=== PATIENT | female | born 1970 | race American Indian/Alaskan Native ===

== ENCOUNTER 2018-04-01 11:49 | Emergency (ER) | payer OTHER ==
[2018-04-01 12:13] VITALS: RESP 20; TEMP 98.5
[2018-04-01] MEDS ORDERED: Oxycodone/Acetaminophen 5/325 mg Tab PO STA (12:45)
[2018-04-01 13:02] LABS: HCG,QUALITATIVE URINE NEGATIVE (NEGATIVE)
[2018-04-01 13:03] LABS: SQUAMOUS EPITHIAL 1 /hpf (0-5); URINE BILIRUBIN NEGATIVE (NEGATIVE); URINE CLARITY Clear (Clear); URINE COLOR Yellow (YELLOW); URINE GLUCOSE (UA) NORMAL (Normal); URINE LEUKOCYTE ESTERASE NEG Leu/uL (Negative); URINE PROTEIN NEGATIVE (NEGATIVE); URINE UROBILINOGEN NORMAL mg/dL (0.2-1.0)
[2018-04-01] MEDS ORDERED: Oxycodone/Acetaminophen 5/325 mg Tab ONE (13:03)
--- NOTE | 2018-04-01 13:04 | C.PDOC ---
History Of Present Illness 47 y/o female, with PMHx of HTN, presents to the ED complaining of left knee pain that has been ongoing for a month but worsening over the last week. Pt was at work, felt sudden pain in her knee on 02/27 and was evaluated by the ER with negative for DVT but showed a complex thompson's cyst. PT has an appointment with magalie Mendez on Tuesday. The patient also reports frequent urination. She has a h/o of this in the past, was evaluated by Dr Chin, and by diagnosed with incomplete bladder emptying. PT also notes she has a h/o HTN but was taken off her BP medication a few months ago. She denies any trauma, change in sensation, redness, fever, dysuria, hematuria, headache, chest pain, sob, or visual changes. Time Seen by Provider: 04/01/18 12:19 Chief Complaint (Nursing): Female Genitourinary History Per: Patient History/Exam Limitations: no limitations Onset/Duration Of Symptoms: Days Current Symptoms Are (Timing): Still Present Recent travel outside of the [place]: No Past Medical History Reviewed: Historical Data, Nursing Documentation, Vital Signs Vital Signs: Last Vital Signs Temp 98.5 F 04/01/18 12:09 Pulse 88 04/01/18 13:46 Resp 20 04/01/18 13:46 BP 164/91 H 04/01/18 13:46 Pulse Ox 100 04/04/18 14:42 - Medical History PMH: HTN, Kidney Stones Surgical History: Family History: States: Unknown Family Hx - Social History Hx Tobacco Use: Yes Hx Alcohol Use: No Hx Substance Use: No - Immunization History Hx Tetanus Toxoid Vaccination: (unk) Hx Influenza Vaccination: No Hx Pneumococcal Vaccination: Yes Review Of Systems Except As Marked, All Systems Reviewed And Found Negative. Constitutional: Negative for: Fever Genitourinary: Positive for: Frequency. Negative for: Dysuria, Vaginal Bleeding Musculoskeletal: Positive for: Leg Pain (left knee pain) Neurological: Negative for: Numbness Physical Exam - Physical Exam Appears: Well, Non-toxic, Other (uncomfortable) Skin: Warm, Dry Head: Atraumatic, Normacephalic Eye(s): bilateral: Normal Inspection, EOMI Nose: Normal Oral Mucosa: Moist Neck: Normal ROM, Supple Chest: Symmetrical Cardiovascular: Rhythm Regular Respiratory: Normal Breath Sounds, No Accessory Muscle Use, Other (speaking in full sentences) Extremity: No Normal ROM (decresaed secondary to pain), Tenderness (tenderness to the left knee diffusely, primarily to the posterior knee), No Pedal Edema, Capillary Refill (<2 sec), No Deformity, No Swelling Pulses: Left Dorsalis Pedis: Normal, Right Dorsalis Pedis: Normal Neurological/Psych: Oriented x3, Normal Speech, Other (no focal deficits) ED Course And Treatment O2 Sat by Pulse Oximetry: 100 (RA) Pulse Ox Interpretation: Normal Progress Note: Ordered UA. Medications given in ED: percocet 2 tab PO and Toradol (30 mg IM). UA shows no UTI, no glucose in urine. pt instructed to follow up with urology in 1-2 days. BP improved. pt requests to restart her BP medication as written. DIsucssed risks on untreated htn and instructed to follow up with PMD for re-check. PT continues to be asymptomatic - denies chest pain, headache, sob or dizziness. Knee pain: evaluated previous work up, neg DVT. No signs of infection. Cap refill <2 sec. Pt notes pain improved. Instructed to follow up with ortho as scheduled or return to er if symptoms persist or worsen. CAse discussed with Dr Ingram , agreed upon plan and treatment. Disposition - Disposition Referrals: Kell John MD [Staff Provider] - Binta Doherty MD [Staff Provider] - Luis Miguel Chin MD [Staff Provider] - Disposition: HOME/ ROUTINE Disposition Time: 13:50 Condition: STABLE Additional Instructions: Follow up with your primary medical doctor or clinic in 2-5 days for further evaluation. Take medications as prescribed. Return to the emergency department at any time if symptoms persist or worsen. Prescriptions: Atenolol [Tenormin] 25 mg PO DAILY #14 tab traMADol [Ultram] 50 mg PO Q8 #15 tab Instructions: High Blood Pressure (DC), Thompson's Cyst (DC) Forms: [facility] ([place]ak[place]) - Clinical Impression Clinical Impression: Thompson cyst, HTN (hypertension) - PA / [employer] / Resident Statement MD/DO has reviewed & agrees with the documentation as recorded. - Scribe Statement The provider has reviewed the documentation as recorded by the Scribe (Yamilka Chao) All medical record entries made by the Scribe were at my direction and personally dictated by me. I have reviewed the chart and agree that the record accurately reflects my personal performance of the history, physical exam, medical decision making, and the department course for this patient. I have also personally directed, reviewed, and agree with the discharge instructions and disposition.
[2018-04-01 13:07] LABS: URINE BLOOD 1+ (NEGATIVE)
[2018-04-01 13:47] VITALS: BP 164/91; PULSE 88
[2018-04-01 13:52] VITALS: O2SAT 100
== END 2018-04-01 14:13 | disposition home or self-care (01) ==
LOC: C.ER 11:49
DX: M71.22 Synovial cyst of popliteal space [Baker], left knee (principal); I10 Essential (primary) hypertension; F17.210 Nicotine dependence, cigarettes, uncomplicated
CPT/HCPCS: 81001; 84703; 96372; 99285; J1885

== ENCOUNTER 2018-05-31 08:06 | Day surgery (SDC) | payer OTHER ==
[2018-05-29 11:47] VITALS: BMI 41.8
[2018-05-31] MEDS ORDERED: ceFAZolin IV 1 gm in Dextrose 0 GM/0 ML BAG IVPB ONE (11:15)
[2018-05-31] MEDS ORDERED: EPINEPHrine 1:1000 Nasal Sol(30mL) ONE (11:15)
[2018-05-31] MEDS ORDERED: Bupivacaine HCl 0.5% PF (30 ml) Inj ONE (11:15)
[2018-05-31] MEDS ORDERED: Propofol 10 mg/ml Inj (20 ML) ONE (11:30)
[2018-05-31] MEDS ORDERED: Midazolam 2 MG/2 ML VIAL ONE (11:30)
[2018-05-31] MEDS ORDERED: Rocuronium 10 mg/ml (5 ml) ONE (11:32)
[2018-05-31] MEDS ORDERED: Clindamycin 600mg/50ml NS 1,200 MG/100 ML BAG IVPB ONE (12:14)
[2018-05-31] MEDS ORDERED: Rocuronium 10 mg/ml (10 ml) ONE (12:59)
[2018-05-31] MEDS ORDERED: Clindamycin 300 MG in Sodium Chloride 0.9% 50 ML IVPB SCH (13:00)
[2018-05-31] MEDS ORDERED: Labetalol 5mg/ml (4ml) ONE (13:45)
[2018-05-31] MEDS ORDERED: Neostigmine Methylsulfate 3mg/3ml Syringe IV ONE (14:45)
[2018-05-31] MEDS ORDERED: Lactated Ringer's 1,000 ML IV ONE (15:10)
[2018-05-31] MEDS: HYDROmorphone 1 mg/ml ISec IVP PRN ×2 (15:10→16:46)
[2018-05-31] MEDS ORDERED: Oxycodone/Acetaminophen 5/325 mg Tab PO PRN ×2 (15:14)
[2018-05-31] MEDS: HYDROmorphone 0.5 mg/0.5 ml ISec IVP PRN ×2 (15:17→15:27)
--- NOTE | 2018-05-31 15:19 | CP.PCM.PCO ---
Physician Communication Note - Physician Communication Note Physician Communication Note: Patient pedal pulses were examined in PACU palpable/intact.
[2018-05-31] MEDS ORDERED: Metoprolol 1 mg/ml Inj IVP ONE ×2 (15:32→16:59)
--- NOTE | 2018-05-31 16:10 | PCM.ANESB7 ---
Adductor Canal Block - Adductor Canal Block Date of Procedure: 05/31/18 Anesthiologist: [email or web address] Procedure Performed: Adductor Canal Block Left - Procedure Adductor Canal Block: The procedure was explained to the patient that it is for the post-operative pain management. Consent was obtained after a thorough discussion with the patient regarding the benefits and possible complications of local anesthetic adductor canal block of the femoral nerve. Standard monitors, as defined by the ASA, were applied to the patient. Time-out was held with the circulating nurse to confirm the appropriate block. After applying supplemental oxygen and administering IV Sedation as needed, the patient was placed in supine position with and the operative leg was flexed slightly at the knee and externally rotated as needed, and was kept anatomically stable. The mid-thigh of the ____left____ lower extremity was exposed. The ultrasound transducer was then applied transversely along the medial aspect, about midway down the thigh and the femoral artery and vein were identified in appropriate relation with the sartorius muscle. At this time, the femoral nerve was visualized lateral to the femoral artery within the canal. After thorough identification, this area area was prepped with Chloroprep solution three times and 1 % Lidocaine was injected subcutaneously for topical anesthesia. At this point, a #22 gauge Stimuplex 4-inch needle was inserted in-plane in a [id number] orientation, and advanced toward the femoral nerve. After negative aspiration, _5____cc of __.5___% bupvicaine was injected and this was followed with ____25__ cc of ___.5____ % bupvicaine . Under ultrasound guidance the local anesthetics were observed spreading around the femoral nerve. The needle was removed intact and sterile dressing was applied. The patient had stable vital signs, was conscious and in no apparent distress. The patient tolerated the femoral nerve block well with stable vital signs and was prepared for subsequent surgery
[2018-05-31] MEDS ORDERED: HYDROmorphone 1 mg/ml ISec IVP PRN (17:00)
[2018-05-31] MEDS ORDERED: DiphenhydrAMINE 50 mg/ml Inj IM STA (17:29)
--- NOTE | 2018-05-31 20:15 | PCM.SURG1 ---
Surgeon's Initial Post Op Note - Surgeon's Notes Surgeon: Binta Mobley MD Oil Heaterman: Neto Britt PA-C Type of Anesthesia: General Endo, Block Regional Pre-Operative Diagnosis: Left knee: #1 Medial Meniscal Tear. 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 #3 Synovitis. #4 Symtomatic Medial Plica Operative Findings: Left knee: #1 Medial Meniscal Tear (2 zones of injury= complex horizontal cleavage tear Posterior Horn to Mid Body, starting at White - White Zone extending to Red-White zone, partially repairable/ Peripheral Red-Red zone tear posterior body). 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 #3 Patella and Medial Tibial Plateau Chondromalacia (grade 2-3 chondromalacia at medial facet inferior aspect, anterior aspect medial tibial plateau, no full thickness defect seen). #4 Lateral Meniscal Tear (complex free edge white - white zone tear , not repairable). #5 Severe inflammed Synovitis throughout entire knee joint in all 3 compartments. #6 Symptomatic medial and lateral plica. #7 Severely Hypertrophic, Inflamed infrapatellar fat pad (causing impingement on extension and PF joint). #8 multiple loose bodies (3 of them measuring greater than 1cm) Post-Operative Diagnosis: Left knee: #1 Medial Meniscal Tear (2 zones of injury= complex horizontal cleavage tear Posterior Horn to Mid Body, starting at White - White Zone extending to Red-White zone, partially repairable/ Peripheral Red-Red zone tear posterior body). 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 #3 Patella and Medial Tibial Plateau Chondromalacia (grade 2-3 chondromalacia at medial facet inferior aspect, anterior aspect medial tibial plateau, no full thickness defect seen). #4 Lateral Meniscal Tear (complex free edge white - white zone tear , not repairable). #5 Severe inflammed Synovitis throughout entire knee joint in all 3 compartments. #6 Symptomatic medial and lateral plica. #7 Severely Hypertrophic, Inflamed infrapatellar fat pad (causing impingement on extension and PF joint). #8 multiple loose bodies (3 of them measuring greater than 1cm) Operation Performed: Left Knee Arthroscopic: #1 All inside Medial Meniscal Repair (w/ concominant partial menisectomy of non-repairable portions). #2 Partial Lateral Menisectomy. #3 Chondroplasty MFC, medial tibial plateau, and Patella. #4 Evaluation of zone of Chondral Loss MFC compared to the rest of the knee joint and compartments to assess for possible future MFC osteochondral allograft cartialge transplant. #5 Extensive Synovectomy all 3 compartments. #6 Resection and Debridement Symptomatic medial and lateral Plica. #7 Resection and Debridement Hypertrophic, inflamed fat pad. #8 Removal of multiple large loose bodies (done through accessory portal created only for removal large, multiple LB's). #9 Intra-articular PRP injection Specimen/Specimens Removed: Specimen= multiple large loose bodies (cartilage) sent to Pathology. Complications= none. Tourniquet time= 0min. Implants= Linvatec all inside Sequent meniscal repair system, 12 implants placed for MM repair, 3 kits opened. Estimated Blood Loss: EBL {In ML}: 3 Blood Products Given: N/A Drains Used: No Drains Post-Op Condition: Good (I personally examined the pt in PACU after she recovered, LLE: no swelling/warmth/redness, skin intact, calves soft BL, + 5/5 motor strength Hip flex/ext, knee flex/ext, ankle DF/PF, toes up and down, sensory intact L2-S1, DPN/TN/SPN/SN, 2+ DP and PT pulses, BCR all toes) Date of Surgery/Procedure: 05/31/18 Time of Surgery/Procedure: 15:00
[2018-05-31 20:22] VITALS: BP 162/92; PULSE 85; RESP 12; TEMP 98.7; O2SAT 98
--- NOTE | 2018-07-05 13:35 | OP ---
PROCEDURE DATE: 05/31/2018 PREOPERATIVE DIAGNOSES: Left knee: 1. Medial meniscal tear. 2. Medial femoral condyle chondromalacia/focal chondral loss. 3. Synovitis. 4. Symptomatic medial plica bands. POSTOPERATIVE DIAGNOSES: Left knee: 1. Medial meniscal tear (2 zones of injury = complex horizontal cleavage tear posterior horn to mid body starting at white/white zone extending to red/white zone partially repairable/peripheral red/red zone tear posterior body, repairable). 2. Medial femoral condyle chondromalacia/focal chondral loss (focal grade 3 to 4 chondromalacia at weightbearing surface of medial femoral condyle measuring 22 mm anterior to posterior and 12 mm width at its widest portion. 3. Patella and medial tibial plateau chondromalacia (grade 2 to 3 chondromalacia and medial facet inferior aspect and anterior aspect of medial tibial plateau with no full-thickness defect seen). 4. Lateral meniscal tear (complex free edge tear white/white zone, not repairable). 5. Severe inflamed synovitis throughout entire knee joint in all 3 compartments. 6. Symptomatic medial and lateral plica bands. 7. Severely hypertrophic, inflamed infrapatellar fat pad causing impingement on extension and at the patellofemoral joint. 8. Multiple loose bodies (3 of which measured greater than 1 cm). PROCEDURES: Left knee arthroscopic: 1. All-inside medial meniscal repair with concomitant partial meniscectomy of nonrepairable portions. 2. Partial lateral meniscectomy. 3. Chondroplasty medial femoral condyle, medial tibial plateau and patella. 4. Evaluation of zone of chondral loss of medial femoral condyle compared to the rest of the knee joint and compartments to assess for possible future medial femoral condyle osteochondral allograft cartilage transplantation benefit. 5. Extensive synovectomy all 3 compartments. 6. Resection and debridement symptomatic medial and lateral plica bands. 7. Resection and debridement hypertrophic inflamed fat pad. 8. Removal of multiple large loose bodies down through accessory portal created only for removal of multiple large loose bodies. 9. Intraarticular platelet-rich plasma injection. SURGEON: Binta Mobley MD. SCOOTER MECHANIC: Neto Britt PA-C. JUSTIFICATION FOR SCOOTER MECHANIC: Neto Britt is a certified physician activities assistant whose skilled surgical services were an absolute necessity for successful completion of the procedure as he provided skilled surgical assistance with positioning of the patient, positioning of the extremity, management of surgical naranjo, retraction of neurovascular structures, operation of medial meniscus and facilitating all inside and medial meniscus repair, partial lateral meniscectomy, extensive synovectomy and resection, debridement of plica bands and hypertrophic fat pad, chondroplasty, removal of loose bodies, especially with the use of the accessory portal, wound closure, fitting and placement of postop hinged knee brace. Neto Britt was present for the entire case and was an absolute necessity for successful completion of the procedure. ANESTHESIA: General endotracheal anesthesia with a postop regional nerve block placed by anesthesia staff and PACU. SPECIMENS: Multiple large loose bodies sent to Pathology. COMPLICATIONS: None. TOURNIQUET TIME: Zero minutes. ESTIMATED BLOOD LOSS: 3 mL. DISPOSITION: The patient was extubated and transferred to PACU in stable condition and tolerated the procedure well. IMPLANTS: Linvatec all-inside meniscal repair system, Sequent system with 12 implants used in total for the medial meniscus repair, 3 kits opened. POSTOPERATIVE CONDITION: I personally examined the patient both preop and postop in PACU with the left lower extremity exhibiting neurovascularly intact status with 2+ dorsalis pedis and posterior tibialis pulses and brisk capillary refill all toes with full motor and sensory function. INDICATIONS FOR SURGERY: The patient is a 47-year-old female with a past medical history significant for hypertension and obesity who presents to the office for the first time under my care on 04/04/2018 with left knee pain progressively worsening over the past 5 weeks as a referral from [facility] ER and her PCP, Dr. John. She denied any significant traumatic events. She stated that the pain had progressively worsened over the past 5 weeks starting approximately 02/27/2018, and progressively worsening since then. The pain has become a significant negative impact on her quality of life and she is having difficulty with ADLs and standing at work. 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 On 02/27/2018, she went to the emergency room at [facility] and at [facility] on 04/01/2018 for her left knee pain. On both occasions after review of imaging and evaluation by ER staff, she was diagnosed with left knee inflammation and synovitis with possible meniscus repair and was referred for outpatient followup with an orthopedic surgeon. She also underwent ultrasound Doppler of bilateral lower extremities, which were negative for DVT, but positive for a Thompson cyst on 04/01/2018 ER visit at [facility]. Prior to 02/27/2018, she denies having any left knee pain. On physical examination in the office, she had significant medial joint line tenderness to palpation and positive medial Tristen with all clinical signs of a medial meniscal tear and possible lateral meniscal tear with plica bands and synovitis throughout. X-rays taken in the office showed that the joint space was still maintained with normal alignment and there was evidence of very early stages of degenerative changes at the medial compartment as well, but the joint space was well maintained. She was referred for an MRI of the left knee that has been read by radiology on 04/10/2018, as an open MRI, which was read as: 1. Oblique tear posterior horn and body of medial meniscus. 2. Grade 1 sprain ACL and MCL. 3. 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 4. Small joint effusion and small 1 cm Thompson cyst. Under my care, she underwent cortisone mixture injection as 2 separate injections were provided to the medial and lateral compartments in my office on 04/04/2018 and 04/18/2018, resulting in near complete resolution of pain that only lasted a few days. She was compliant with the physical therapy recommendation as well as brace use and antiinflammatory medications and antiinflammatory cream use. Finally, on 05/11/2018 followup, she stated that she was in severe pain and could not tolerate it anymore and stated that physical therapy was making her pain worse. At that point in time, she was indicated for surgery. After I reviewed the MRI at length with her, I explained to her that there is really 2 problems. There is the pathology that can be addressed in the initial arthroscopy under her insurance, which will be the first stage procedure followed by a second stage procedure. A second stage procedure would be carried out if indeed it is indicated and she would like to proceed. The first stage procedure, which is this surgery today, which she was indicated for, was left knee arthroscopic medial meniscal repair versus partial meniscectomy, possible lateral meniscus repair versus partial meniscectomy, synovectomy, resection of medial plica bands and all related indicated arthroscopic procedures as well as evaluation of the cartilage of the medial femoral condyle compared to the rest of the compartment of the knee to evaluate for the benefit of osteochondral allograft transplantation to the medial femoral condyle weightbearing surface that has a focal cartilage defect seen on MRI. We will use the opportunity to size the lesion as well as evaluate for the benefit of the transplantation. If indeed, she has tricompartmental degenerative disease, then she will not be indicated for the osteochondral allograft transplantation to the medial femoral condyle as of that point in time, it would not be a focal cartilage defect and there would be no significant benefit. We also discussed the benefit of a possible microfracture, which would require an extended period of minimum 6 weeks where she would have to be nonweightbearing to the left lower extremity and the patient stated that she does not think that she could handle that, especially with her size, which I agree and; therefore, her wishes were not to proceed with a microfracture and to evaluate for the benefit of a cartilage transplant and perform a chondroplasty as indicated. The risks, benefits, and alternatives to the procedure were discussed at length with the patient with the risk including but not limited to infection, neurovascular damage, need for further surgery, failure of repair, failure of implants, development of chronic pain and disability, stiffness, inability to return to preinjury level of activity and presurgical level of activity and occupation, development of blood clots including DVT and PE, perioperative complications including cardiopulmonary complications, anesthesia reactions including . After answering all of her questions, she stated that she understood the risks and wished to proceed with surgery. She watched surgical animation videos and diagnosis animation videos and stated that she has a good understanding of her diagnosis as well as the procedure to be done. I reviewed at length with her the postop rehabilitation protocol and she stated that she had a good understanding of the protocol and the need for compliance with the protocol in order to maximize her chance of having a successful outcome after surgery. She was referred to her primary care physician, Dr. John, for preadmission testing and preoperative medical evaluation and the procedure was scheduled at [facility] on 05/31/2018. PROCEDURE IN DETAIL: The patient was identified in preoperative holding area and the left knee was marked for surgery. Once again as described above, the risks, benefits, and alternatives to the procedure were discussed at length with the patient and informed consent was obtained. After a brief discussion with anesthesia staff, the patient was taken to the operating room and placed on a well-padded operating room table with all bony prominences and superficial neurovascular structures well padded. IV antibiotics were administered as perioperative antibiotics. An initial time-out was done with the surgeon, anesthesia staff, OR staff; all in agreement with the patient, procedure being done and the extremity to be operated on. General anesthesia was administered without difficulty or complications. An examination under anesthesia was then carried out. EXAMINATION UNDER ANESTHESIA: Left knee with full range of motion compared to contralateral knee, no evidence of instability with negative anterior drawer, negative posterior drawer, negative Graham, negative reverse Graham, negative pivot shift, negative reverse pivot shift, negative posterolateral corner drawer, negative opening to medial or lateral joint lines at 0 or 30 degrees varus or valgus stress. There was a reproducible click at the medial and lateral aspect of the inferior patella representing medial and lateral symptomatic plica bands engaging at 30 degrees flexion, patella with normal tracking and mild crepitance, skin intact with no warmth, no swelling, no erythema. CONTINUATION OF PROCEDURE: Left lower extremity was prepped and draped in standard sterile fashion. Tourniquet was placed high in left thigh, but never inflated. A final time-out was done with the surgeon,anesthesia staff, OR staff, all in agreement with the patient, procedure being done and the extremity to be operated on. Anterolateral portal was created with stab incision through the skin down to the subcutaneous tissue down to the level of the capsule. Blunt arthroscopic trocar and cannula were inserted into the suprapatellar pouch and insufflation with arthroscopic fluid was begun. Arthroscopic camera was inserted and with the use of spinal needle localization, anteromedial portal was created. With the use of arthroscopic probe, diagnostic arthroscopy was then carried out. DIAGNOSTIC ARTHROSCOPY: Attention was first turned towards the suprapatellar pouch, there was no evidence of adhesions or loose bodies. Attention was then turned towards the patellofemoral joint where the patella exhibited grade 3 and 2 chondromalacia at its inferior aspect of the medial facet with no full-thickness defect seen just fibrillation and unstable cartilage fragments. Attention was then turned towards the medial gutter with no evidence of loose body or pathology. Attention was then turned towards the medial compartment where immediately seen was a focal full-thickness cartilage defect at the weightbearing aspect of the medial femoral condyle with a large anterior to posterior area measuring 22 mm and a maximal width of 12 mm at its widest with a surrounding zone of intact cartilage. The medial meniscus was carefully evaluated and indeed had complex horizontal tearing with 2 zones of injury. The complex horizontal cleavage tear at the posterior horn and midbody starting at the white/white zone extending to the red/white zone was identified and indeed was deemed to be only partially repairable with the white/white zone tissue of poor quality and poor blood supply. The second zone of injury was at the periphery of the posterior horn and body as a peripheral red/red zone tear/meniscal capsular separation that indeed was amendable to repair with good quality tissue. The medial tibial plateau exhibited grade 1 chondromalacia at best with good intact cartilage throughout. Attention was then turned towards the intrachondral notch where intact ACL and PCL were seen. Attention was then turned towards the lateral compartment where intact lateral femoral condyle and lateral tibial plateau cartilage were seen with grade 1 chondromalacia at most at the lateral tibial plateau with no defect seen or evidence of significant DJD. The lateral meniscus exhibited a free edge tear white/white zone tear that was not repairable extending from the anterior to posterior midbody. At the posterior aspect of the lateral compartment were multiple large osteochondral loose bodies sitting in the popliteal hiatus that were fished out with 3 of the loose bodies measuring greater than 1 cm. CONTINUATION OF PROCEDURE: ARTHROSCOPIC REMOVAL OF LOOSE BODIES: With the use of spinal needle localization, an accessory portal was created along the anterior lateral aspect of the lateral compartment to gain access and to remove the multiple large loose osteochondral bodies. With the use of spinal needle localization, this location was identified as the ideal location and stab incision was carried out through the skin down to the subcutaneous tissue down to the level of the capsule. With the use of a large grasper, multiple loose bodies were fished out from the popliteal hiatus with 3 of the largest ones measuring much greater than 1 cm. The loose bodies were saved and sent to pathology. Attention was then turned towards the lateral compartment and the lateral meniscus free edge tear. ARTHROSCOPIC PARTIAL LATERAL MENISCECTOMY: With the use of arthroscopic shaver, radiofrequency ablation and arthroscopic meniscal biters, a partial lateral meniscectomy was carried out of the white/white zone injury from the anterior to mid to posterior body of the lateral meniscus. A smooth contour was established and all fibrillated torn meniscal tissue was resected successfully establishing a smooth contour. All-in-all, less than 10% of the lateral meniscus was removed overall, maintaining good joint preservation technique. Attention was then turned towards the medial compartment. ARTHROSCOPIC ALL-INSIDE MEDIAL MENISCAL REPAIR: With the use of arthroscopic shaver, radiofrequency ablation and arthroscopic meniscal biters, a partial medial meniscectomy was carried out resecting the white/white zone injury of the anterior to mid to posterior horn. This was a complex horizontal cleavage tear with poor quality meniscal tissue at the white/white zone as would be expected with the poor blood supply. Once a smooth contour was established and a partial medial meniscectomy was completed, all-in-all approximately 20% of the medial meniscus overall had been resected while maintaining good joint preservation technique. The remainder of the complex white/red zone injury to the posterior body of the medial meniscus was successfully repaired with placement of 4 implants at the superior aspect as a rip-stop mechanism both repairing this portion of the tear as well as providing a stable construct to prevent propagation of future tears and dislocation. Four implants were placed with good capsular-sided fixation resulting in 3 alternating horizontal and vertical mattress sutures with good fixation achieved and successful repair at the good quality tissue white/red zone of injury of the posterior body. The posterior horn and the body also exhibited the second zone of injury as a peripheral red/red zone meniscal capsular separation that was successfully repaired as well. A suture also used from the Linvatec meniscal repair system to also supplement the posterior body white/red zone repair and residual tearing extending into the posterior horn. Four implants were placed with capsular-sided fixation at the periphery starting at the red/red zone and extending into the red/white zone again supplementing the first zone of injury/tear and stabilizing and fixing the secondary zone of injury/meniscal capsular separation with the same implants. These steps were repeated at the inferior aspect of the posterior horn and posterior body as placement of 4 more implants. All-in-all, 12 implants were placed in toto with good stability achieved at the meniscal capsular separation as well as successful repair of the repairable portion of this complex midbody tear. Attention was then turned towards the evaluation of the chondral injury of the medial femoral condyle as well as chondroplasty in preparation. We took multiple size measurements of this 22 mm x 12 mm large weightbearing zone focal zone of injury. The surrounding unstable flaps of cartilage were debrided. ARTHROSCOPIC CHONDROPLASTY MEDIAL FEMORAL CONDYLE, MEDIAL TIBIAL PLATEAU AND PATELLA: With the use of arthroscopic shaver and radiofrequency ablation, chondroplasty was carried out at the main zone of injury at the weightbearing aspect of the medial femoral condyle as well as the medial tibial plateau and medial facet patella with good smooth contour to the meniscus achieved and again, there was no evidence of any full-thickness injury to the medial tibial plateau or the patella. ARTHROSCOPIC EXTENSIVE SYNOVECTOMY ALL 3 COMPARTMENTS: With the use of arthroscopic shaver and radiofrequency ablation, an extensive synovectomy was carried out resecting the hypertrophic and inflamed synovium throughout all 3 compartments of the knee while maintaining good hemostasis. We also performed resection and debridement of the hypertrophic inflamed fat pad at the anterior aspect of the knee causing significant anterior impingement and patellofemoral impingement and anterior knee pain. We also performed a resection and debridement of the medial and lateral plica bands while maintaining good hemostasis. This extensive synovectomy was carried out requiring significant surgical time to complete this portion of the procedure, which will be coded and billed as a separate portion of the procedure as the amount of time performed and effort placed into this extensive synovectomy was beyond what is considered usual and customary for a synovectomy performed during arthroscopic surgery just to obtain better visualization and, therefore, will be billed as a separate part of the procedure. Once the extensive synovectomy was carried out and all intraarticular treatment was done, final arthroscopic pictures of the all-inside medial meniscal repair, partial lateral meniscectomy, full-thickness cartilage defect of the medial femoral condyle and the rest of the knee joint were taken as well as the area of plica resection and fat pad resection and synovectomy. ARTHROSCOPIC INTRAARTICULAR PRP INJECTION: With the help of anesthesia staff, 10 mL of PRP were obtained through a venous stick and spun in the Arthrex Centrifuge machine with the ACP syringes. All arthroscopic fluid and debris were removed from the knee joint and the 10 mL were delivered intraarticular under direct visualization in its entirety. The wounds were then reapproximated with a 2.0 Vicryl suture for deep tissue and subcutaneous tissue as well as 3.0 Monocryl suture for skin. Sterile dressings were applied followed by a layer of sterile cast padding for the toes up to the superior thigh followed by a layer of compressive Willie wraps from the toes up to the superior thigh. The knee was then fitted and placed in a postop hinged knee brace provided by my office, placed out of medical necessity to protect the medial meniscus repair and maximize the chances of her having a successful outcome after surgery. JUSTIFICATION FOR BILLING AND CODIN. An all-inside arthroscopic medial meniscal repair was carried out successfully and therefore was coded and billed as CPT code 59308. 2. Arthroscopic partial lateral meniscectomy was carried out successfully and therefore was coded and billed as CPT code 73260. 3. A chondroplasty was performed of the medial compartment and the patella with the patella being a completely separate compartment and therefore was coded and billed as CPT code 54811. 4. An arthroscopic extensive synovectomy was carried out beyond what is considered usual and customary just for better visualization during arthroscopic procedures and a significant amount of surgical time was dedicated to this extensive synovectomy including 3 compartment synovectomy, resection, and debridement of medial and lateral plica bands, resection and debridement of the hypertrophic inflamed anterior fat pad. Due to the amount of effort and time required to perform a successful extensive synovectomy under these circumstances for this patient, the extensive synovectomy is billed as a separate part [place] [address]. 5. Arthroscopic removal of multiple loose bodies was carried out successfully with the use of an accessory portal with 3 of the loose bodies measuring much greater than 1 cm and therefore was coded and billed as CPT code 12573. 6. Arthroscopic intraarticular PRP injection was carried out successfully and; therefore, it was coded and billed as CPT code [id number]. 7. Arthroscopic evaluation of the cartilaginous surface of the medial femoral condyle for possible future osteochondral allograft transplantation was inclusive to the primary code of the procedure and therefore was not coded and billed. 8. At the end of the procedure, the patient was fitted and placed in a postop hinged knee brace on her left lower extremity. The brace was provided by my office and is of medical necessity to provide a stable environment for the patient to ambulate and weightbear while protecting the medial meniscal repair. It is a standard of care to place a medial meniscus repair patient in a postop hinged knee brace as well. The brace was provided by my office and therefore was coded and billed as part of the procedure with a DME code of [id number]. DISPOSITION: The patient was extubated and transferred to the PACU in stable condition and tolerated the procedure well. Indeed, she would benefit from the osteochondral allograft transplantation to the medial femoral condyle in the near future and we will attempt as much as possible and work on getting her not just a graft, but approval for use of the graft and return visit to the OR through her insurance. She has been given prescription for Percocet for pain control. She has been given a prescription for Lovenox as DVT prophylaxis to start postoperative day #1 and continue for 2 weeks postoperatively unless her ambulatory status is not satisfactory at outpatient followup in the office. She will follow up in my office within 1 week and already has a postoperative appointment at [facility] set up. She will contact me directly with any questions or concerns. Binta Mobley MD
== END 2018-05-31 19:00 | disposition home or self-care (01) ==
LOC: C.SDS 08:06 → MERGE 08:06 → C.SDS 19:00
PROVIDERS: ATTEND Student in an Organized Health Care Education/Training Program
DX: M23.222 Derangement of posterior horn of medial meniscus due to old tear or injury, left knee (principal); M94.262 Chondromalacia, left knee; M67.52 Plica syndrome, left knee; M65.862 Other synovitis and tenosynovitis, left lower leg; M23.262 Derangement of other lateral meniscus due to old tear or injury, left knee
CPT/HCPCS: 0232T; 29876; 29880; 29999; 88304; C1751; J1170; J1200; J1885; J2250; J2405; J2704; J2710; J3010; J7120

== ENCOUNTER 2018-06-07 12:57 | Emergency (ER) | payer OTHER ==
[2018-06-07] MEDS ORDERED: Sodium Chloride 0.9% 1,000 ML IV ONE (14:26)
[2018-06-07 14:57] LABS: BASO # 0.2 K/uL (0.0-0.2); BASO % 1.3 % (0.0-2.0); EOS # 0.2 K/uL (0.0-0.7); EOS % 1.6 % (0.0-4.0); LYMPH # 2.4 K/uL (1.0-4.3); LYMPH % 20.2 % (20.0-40.0); MEAN CELL VOLUME 78.5 fL (81.0-99.0); MEAN CORPUSCULAR HEMOGLOBIN 25.8 pg (27.0-31.0); MEAN CORPUSCULAR HGB CONC 32.9 g/dL (33.0-37.0); MONO # 1.1 K/uL (0.0-0.8); MONO % 9.2 % (0.0-10.0); NEUT # 8.1 K/uL (1.8-7.0); NEUT % 67.7 % (50.0-75.0); NRBC % 0.1 % (0.0-2.0); RBC 5.02 Mil/uL (3.80-5.20); WHITE BLOOD COUNT 11.9 K/uL (4.8-10.8)
[2018-06-07 15:16] LABS: ALB/GLOB RATIO 1.4 (1.0-2.1); ALBUMIN 4.4 g/dL (3.5-5.0); ALT/SGPT 27 U/L (9-52); AST/SGOT 22 U/L (14-36); BLOOD UREA NITROGEN 15 mg/dL (7-17); CALCIUM 9.5 mg/dl (8.6-10.4); GFR NON-AFRICAN AMERICAN > 60
--- NOTE | 2018-06-07 15:27 | C.PDOC ---
History Of Present Illness 47 y/o female presents to the ER complaining of mild generalized muscle spasms and decreased appetite which has been present for the past 1 week. Patient states that she had meniscus repair of the left knee 1 week ago. Patient stats that she has been feeling mildly uncomfortable since the surgery. She notes that she is not eating and drinking normally. 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 Afterwards, she brought him to the ER and she started having epigastric discomfort. She has generalized muscle spasms and cramps in her arms, legs, and abdomen. She took some medications and applied some topical cream, however the pain persists. Denies having fever, chills, rash, and joint swelling. Time Seen by Provider: 06/07/18 14:14 Chief Complaint (Nursing): Back Pain History Per: Patient History/Exam Limitations: no limitations Onset/Duration Of Symptoms: Days Current Symptoms Are (Timing): Still Present Severity: Moderate Past Medical History Reviewed: Historical Data, Nursing Documentation, Vital Signs Vital Signs: Last Vital Signs Temp 98.4 F 06/07/18 13:18 Pulse 101 H 06/07/18 13:18 Resp 20 06/07/18 13:18 BP 157/87 H 06/07/18 13:18 Pulse Ox 100 06/07/18 13:18 - Medical History PMH: HTN, Kidney Stones Surgical History: Family History: States: No Known Family Hx - Social History Hx Tobacco Use: Yes Hx Alcohol Use: No Hx Substance Use: No - Immunization History Hx Tetanus Toxoid Vaccination: (unk) Hx Influenza Vaccination: No Hx Pneumococcal Vaccination: Yes Review Of Systems Except As Marked, All Systems Reviewed And Found Negative. Constitutional: Positive for: Malaise. Negative for: Fever, Chills Gastrointestinal: Positive for: Abdominal Pain. Negative for: Nausea, Vomiting Genitourinary: Negative for: Dysuria, Hematuria Physical Exam - Physical Exam Appears: Non-toxic, No Acute Distress, Other (able to sit comfortably,) Skin: Normal Color, Warm, Dry Head: Atraumatic, Normacephalic Eye(s): bilateral: Normal Inspection Nose: Normal Oral Mucosa: Dry (mildly dry) Neck: Supple Chest: Symmetrical Cardiovascular: Rhythm Irregular (borderline tachycardiac) Respiratory: Normal Breath Sounds, No Rales, No Rhonchi, No Wheezing Gastrointestinal/Abdominal: Normal Exam, No Tenderness, No Guarding, No Rebound Extremity: Normal ROM, No Tenderness (left knee), No Swelling (left knee) Neurological/Psych: Oriented x3, Normal Speech ED Course And Treatment - Laboratory Results Result Diagrams: 06/07/18 14:51 06/07/18 14:51 Lab Interpretation: No Acute Changes O2 Sat by Pulse Oximetry: 100 (RA) Pulse Ox Interpretation: Normal Reevaluation Time: 17:06 Reassessment Condition: Improved (Feels much better after IV fluids and is no longer having muscle spasms) Medical Decision Making Medical Decision Making: Plan: --Labs --CXR --UA --IV Fluids Disposition Counseled Patient/Family Regarding: Studies Performed, Diagnosis, Need For Followup - Disposition Disposition: HOME/ ROUTINE Disposition Time: 17:06 Condition: IMPROVED Instructions: Muscle Spasms (DC) Forms: [facility] ([place]) - Clinical Impression Clinical Impression: Muscle spasm - Scribe Statement The provider has reviewed the documentation as recorded by the Catina Vickers Provider Attestation: All medical record entries made by the Nicolasaibe were at my direction and personally dictated by me. I have reviewed the chart and agree that the record accurately reflects my personal performance of the history, physical exam, medical decision making, and the department course for this patient. I have also personally directed, reviewed, and agree with the discharge instructions and disposition.
[2018-06-07 15:30] VITALS: RESP 18
[2018-06-07 17:40] VITALS: BP 135/82; PULSE 89; TEMP 98.5; O2SAT 99
== END 2018-06-07 17:38 | disposition home or self-care (01) ==
LOC: C.ER 12:57
DX: M62.838 Other muscle spasm (principal); I10 Essential (primary) hypertension; F17.210 Nicotine dependence, cigarettes, uncomplicated
CPT/HCPCS: 80053; 82550; 85025; 99284; J7030